=== PATIENT | male | born 1950 | race Caucasian/White ===

== ENCOUNTER 2017-06-05 17:03 | Emergency (ER) | payer OTHER ==
[2017-06-05 17:42] VITALS: BP 145/95; PULSE 87; TEMP 98.6; BMI 27.5
--- NOTE | 2017-06-05 18:54 | PDOC ---
Attending Attestation - Resident Resident Name: Imtiaz Riley - ED Attending Attestation I have performed the following: I have examined & evaluated the patient, The case was reviewed & discussed with the resident, I agree w/resident's findings & plan, Exceptions are as noted - HPI HPI: 06/05/17 19:23 67-year-old male history of active prostate cancer, alcohol abuse, oxycodeine abuse BIBEMS for admission to oncology service. Pt followed by Dr. Last Hinds at [facility] and has had increased lethargy per his family over the last 4 days. Family also notes he's been drinking alcohol heavily, his last drink was this morning. They called Dr. Hinds's service today who advised them to present to [facility] for admission. When the patient's family called EMS they brought him to [facility] because it was a closer hospital. The family reports his color has become more yellow over the last month. They also report that he's been cutting his shins with a nail file intentionally over the last month. They are unaware of him abusing or ingesting any other substances, The patient and his family deny fevers, chills, chest pain, shortness of breath , headaches, or focal weakness. - Physicial Exam PE: 06/05/17 19:35 GENERAL: lethargic but arousable, fully oriented, in no acute distress HEAD: No signs of trauma EYES: PERRLA, EOMI, +icteric sclera, conjunctiva clear ENT: Auricles normal inspection, hearing grossly normal, nares patent, oropharynx clear without exudates. Moist mucosa NECK: Normal ROM, supple, no lymphadenopathy, JVD, or masses LUNGS: Breath sounds equal, clear to auscultation bilaterally. No wheezes, and no crackles HEART: Regular rate and rhythm, normal S1 and S2, no murmurs, rubs or gallops ABDOMEN: Soft, nontender, normoactive bowel sounds. No guarding, no rebound. No masses EXTREMITIES: Normal range of motion, +2+ pitting edema to the knees b/l NEUROLOGICAL: Normal speech, cranial nerves intact, negative pronator drift, 5/ 5 strength in all 4 extremities, normal sensation to light touch in all 4 extremities, normal cerebellar exam, normal gait, normal reflexes and tone SKIN: Warm, Dry, normal turgor, multiple linear healing scars on the anterior shins b/l consistent with - Medical Decision Making 06/05/17 19:45 67-year-old male history of active prostate cancer and active alcohol abuse presents to the emergency department with lethargy. Family reports he is due to be admitted to [facility] for evaluation of his lethargy. Family reports he has been lethargic since Sunday, but they are not sure why. Will do a work up for infectious vs toxic-metabolic vs neurologic causes of lethargy and if he remains stable, will transfer to [facility] - Dr. Hinds has already accepted the patient. -labs -CXR -UA -Utox -transfer 06/05/17 20:28 Initially planned to have CTH done as work up for patient's lethargy, however reports he recently had a CTH and that his lethargy is not new. She reports he has consistently had lethargy for the last few months 2/2 advanced liver disease. We spoke with Dr. Hinds who said to hold off on the CTH as there have been no changes to his clinical status . Pt awaiting transfer to [facility].
[2017-06-05 20:10] LABS: HEMOGLOBIN 13.1 GM/dL (11.7-16.9); MCH 32.6 pg (25.7-33.7); MCHC 33.6 g/dl (32.0-35.9); MEAN CELL VOLUME 97.1 fl (80-96); MEAN PLT VOLUME 7.3 fl (7.5-11.1); PLATELET COUNT 109 K/MM3 (134-434); RBC 4.02 M/mm3 (4.00-5.60); RDW 17.3 % (11.9-15.9); WHITE BLOOD COUNT 7.9 K/mm3 (4.0-10.0)
[2017-06-05 20:25] LABS: PLATELET ESTIMATE ADEQUATE (NORMAL)
[2017-06-05 20:38] LABS: INR 1.61 (0.82-1.09); PROTHROMBIN TIME (PATIENT) 17.9 SEC (9.98-11.88)
[2017-06-05 20:40] LABS: ALBUMIN 1.7 g/dl (3.4-5.0); ANION GAP 8 (8-16); BILIRUBIN,TOTAL 4.8 mg/dL (0.2-1.0); BLOOD UREA NITROGEN 23 mg/dL (7-18); CALCIUM 8.7 mg/dL (8.5-10.1); CHLORIDE 93 mmol/L (98-107); CO2 28 mmol/L (21-32); CREATININE 0.8 mg/dL (0.7-1.3); GLUCOSE,RANDOM 129 mg/dL (74-106); LIPASE 105 U/L (73-393); POTASSIUM 4.2 mmol/L (3.5-5.1); SGOT/AST 52 U/L (15-37); SGPT/ALT 45 U/L (12-78); SODIUM 129 mmol/L (136-145); TOT PROT 8.1 g/dl (6.4-8.2)
[2017-06-05 20:41] LABS: ACTIVATED PTT 26.4 SECONDS (26.9-34.4)
[2017-06-05 20:49] LABS: ALK PHOS 85 U/L (45-117)
[2017-06-05 21:03] LABS: SALICYLATE < 4.0 mg/dl (0.0-30.0)
[2017-06-05 21:04] LABS: ACETAMINOPHEN < 1.0 ug/ml (10.0-30.0)
--- NOTE | 2017-06-06 08:54 | PDOC ---
History of Present Illness - General Chief Complaint: Weakness Stated Complaint: WEAKNESS Time Seen by Provider: 06/05/17 17:41 History Source: Family Exam Limitations: No Limitations, Clinical Condition, Intoxication - History of Present Illness Initial Comments: 06/06/17 08:47 The patient is a 67M with a PMH of prostate CA, liver CA, hep C, and substance abuse who presents to the ED via EMS. The patient has been unable to ambulate and so the called the patient's oncologist, Dr. Last Hinds, who told the to send the patient to [facility]'s ED. When the called EMS, the EMS brought the patient to [facility] instead of [place]. The patient has also been cutting himself. There is an unclear psychiatric history per the oncologist. The patient also has returned to heavy drinking. Dr. Hinds wanted the patient to go to the ED due to his return to substance abuse, his self harm, and the requirement for detox to continue radiation treatment. Past History - Past Medical History Allergies/Adverse Reactions: Allergies Allergy/AdvReac Type Severity Reaction Status Date / Time No Known Allergies Allergy Verified 06/05/17 18:01 Home Medications: Ambulatory Orders Oxycodone HCl [Oxycodone HCl ER] 20 mg PO DAILY 04/13/15 Amphetamine [Adzenys Xr-Odt] 15.7 mg PO 06/05/17 Potassium Chloride 20 meq PO 06/05/17 Spironolactone 100 mg PO 06/05/17 Anemia: No Asthma: No Cancer: Yes (LIVER, PROSTATE) Cardiac Disorders: No CVA: No COPD: No CHF: No Dementia: No Diabetes: No GI Disorders: No Disorders: Yes (BPH) HTN: Yes Hypercholesterolemia: No Liver Disease: Yes (CANCER OF THE LIVER 2010) Seizures: No Thyroid Disease: No Other medical history: Prostate Cancer, Hep C - Surgical History Abdominal Surgery: Yes (LIVER) Appendectomy: No Cardiac Surgery: No Cholecystectomy: No Lung Surgery: No Neurologic Surgery: No Orthopedic Surgery: Yes (LEFT KNEE SCOPE 2008) - Psycho/Social/Smoking Cessation Hx Anxiety: No Suicidal Ideation: No Smoking History: Never smoked Have you smoked in the past 12 months: No Information on smoking cessation initiated: No Hx Alcohol Use: Yes Drug/Substance Use Hx: No Substance Use Type: Alcohol, Opiates, Prescribed Hx Substance Use Treatment: No Review of Systems - Review of Systems Able to Perform ROS?: No (intoxicated) *Physical Exam - Vital Signs Last Vital Signs Temp Pulse Resp BP Pulse Ox 98.6 F 87 20 145/95 97 06/05/17 20:40 06/05/17 20:40 06/05/17 20:40 06/05/17 20:40 06/05/17 17:30 - Physical Exam General Appearance: Yes: Nourished, Disheveled, Intoxicated HEENT: positive: Normal Voice, Hearing Grossly Normal Respiratory/Chest: positive: Lungs Clear, Normal Breath Sounds. negative: Chest Tender, Respiratory Distress, Accessory Muscle Use, Labored Respiration, Crackles, Rales, Rhonchi, Stridor, Wheezing Cardiovascular: positive: Regular Rhythm, Regular Rate, S1, S2. negative: Diastolic Murmur, Systolic Murmur Gastrointestinal/Abdominal: positive: Flat, Soft. negative: Tender, Increased Bowel Sounds, Protuberent, Distended, Guarding, Rebound Extremity: positive: Swelling (2+ pitting edema bilaterally). negative: Calf Tenderness Integumentary: positive: Dry, Warm. negative: Cold, Clammy Neurologic: positive: manager of security II-XII NML intact, Confused, Disoriented. negative: Fully Oriented (AxO x1), Normal Mood/Affect, Motor Strength 5/5 (difficult to ambulate) ED Treatment Course - LABORATORY CBC & Chemistry Diagram: 06/05/17 19:21 06/05/17 19:21 - ADDITIONAL ORDERS Additional order review: Laboratory Results 06/05/17 06/05/17 06/05/17 19:21 19:21 19:21 INR 1.61 H PTT (Actin FS) 26.4 L Sodium 129 L Potassium 4.2 Chloride 93 L Carbon Dioxide 28 Anion Gap 8 BUN 23 H Creatinine 0.8 Creat Clearance w eGFR > 60 Random Glucose 129 H Calcium 8.7 Magnesium 2.0 Total Bilirubin 4.8 H AST 52 H ALT 45 Alkaline Phosphatase 85 Troponin I < 0.02 B-Natriuretic Peptide Total Protein 8.1 Albumin 1.7 L Lipase 105 TSH 0.88 Salicylates < 4.0 Acetaminophen < 1.0 L 06/05/17 19:21 INR PTT (Actin FS) Sodium Potassium Chloride Carbon Dioxide Anion Gap BUN Creatinine Creat Clearance w eGFR Random Glucose Calcium Magnesium Total Bilirubin AST ALT Alkaline Phosphatase Troponin I B-Natriuretic Peptide 441.67 H Total Protein Albumin Lipase TSH Salicylates Acetaminophen 06/05/17 19:21 RBC 4.02 MCV 97.1 H MCHC 33.6 RDW 17.3 H MPV 7.3 L Neutrophils % Y Lymphocytes % Y Medical Decision Making - Medical Decision Making 06/06/17 08:52 The patient is a 67M with a PMH of liver ca, prostate ca, hep c, and substance abuse who presents to the ED via EMS. The patient's explained that he was supposed to go to [facility]. I have set up transportation and spoken with the ED, Dr. Henderson, and his oncologist, Dr Hinds, who are aware of his arrival. *DC/Admit/Observation/Transfer Diagnosis at time of Disposition: STABLE - Discharge Dispostion Disposition: TRANSFER ACUTE CARE/OTHER HOSP Condition at time of disposition: Stable - Referrals Referrals: Armani Mercer MD [Primary Care Provider] - - Patient Instructions - Post Discharge Activity - Transfer to Acute Care Facility Receiving Facility: [facility] Accepting Physician:: Dr. Henderson - Attestations Physician Attestion: 06/06/17 08:54 I, Dr. Imtiaz Riley, attest that this document has been prepared under my direction and personally reviewed by me in its entirety. I further attest, that it accurately reflects all work, treatment, procedures and medical decision -making performed by me.
--- NOTE | 2017-06-06 11:16 | EKG ---
Test Reason : Blood Pressure : / mmHG Vent. Rate : 095 BPM Atrial Rate : 095 BPM P-R Int : 148 ms QRS Dur : 088 ms QT Int : 382 ms P-R-T Axes : 031 -31 018 degrees QTc Int : 480 ms NORMAL SINUS RHYTHM LEFT AXIS DEVIATION MINIMAL VOLTAGE CRITERIA FOR LVH, MAY BE NORMAL VARIANT CANNOT RULE OUT ANTERIOR INFARCT , AGE UNDETERMINED ABNORMAL ECG NO PREVIOUS ECGS AVAILABLE Confirmed by TAMERA BAPTISTE, ORALIA ([id number]) on 06/06/2017 11:16:33 AM Referred By: Confirmed By:ORALIA PHILIP MD
== END 2017-06-05 21:18 | disposition short-term general hospital (02) ==
LOC: JER 17:03
DX: C61 Malignant neoplasm of prostate (principal); C78.7 Secondary malignant neoplasm of liver and intrahepatic bile duct; F10.10 Alcohol abuse, uncomplicated; F11.10 Opioid abuse, uncomplicated; B18.2 Chronic viral hepatitis C; Z91.5 Personal history of self-harm
CPT/HCPCS: 36415; 71010-TC; 80053; 80307; 83690; 83735; 83880; 84443; 84484; 85025; 85610; 85730; 93005; 93010; 99284-25